=== PATIENT | female | born 1980 | race Two or more races ===

== ENCOUNTER 2024-09-03 10:32 | Emergency (ER) | payer MEDICAID, SELFPAY ==
[2024-09-03 11:04] VITALS: BP 191/146; PULSE 76; RESP 19; TEMP 36.9; O2SAT 99; BMI 40.3
--- NOTE | 2024-09-03 11:21 | XR_ITS ---
Examination: Shoulder,right, 3 views Technique: Shoulder AP internal rotation, AP external rotation, Y view shoulder, 3 views Exam date and time :September 03, 2024 1124 hours INDICATIONS: Right shoulder pain beginning 3 days ago. FINDINGS: No fracture or dislocation Calcific tendinitis Moderate osteoarthritis acromioclavicular joint IMPRESSION: Right shoulder calcific tendinitis Moderate osteoarthritis acromioclavicular joint
[2024-09-03 12:16] VITALS: BP 177/124; PULSE 76
[2024-09-03] MEDS: cloNIDine HCL 0.1 MG TABLET 0.2 MG PO (12:16)
[2024-09-03] MEDS: KETOROLAC INJ 30 MG/ML VIAL IM (12:17)
[2024-09-03] MEDS: DIAZEPAM 5 MG TABLET 10 MG PO (12:17)
[2024-09-03 13:32] VITALS: BP 140/92; PULSE 75; RESP 16; TEMP 36.6; O2SAT 99
--- NOTE | 2024-09-03 14:15 | EDNOTE_ITS ---
Upper Extremity Injury RME/HPI General Chief Complaint: Extremity Injury, Upper Stated Complaint: RIGHT ARM PAIN Time Seen by Provider: 09/03/24 10:37 Arrival date/time: 09/03/24 10:32 44-year-old female history of hypertension presents to the emergency department today with complaints of right arm pain patient reports pain to the right shoulder worse with movement patient reports that she developed pain after throwing an object Limitations: no limitations Related Data Previous Rx's ?Medication ?Instructions ?Recorded cyclobenzaprine 10 mg tablet 10 mg PO TID PRN muscle s pasm 10 09/03/24 days #30 tab-caps ibuprofen 800 mg tablet 800 mg PO TID PRN pain #30 t abs 09/03/24 Allergies Allergy/AdvReac Type Severity Reaction Status Date / Time No Known Allergies Allergy Verified 08/14/22 15:04 Review of Systems Review of Systems Systems Reviewed: All systems reviewed, normal except as documented Constitutional Constitutional: Reports system reviewed and no additional complaints, except as documented, Denies fever(s) and Denies headache(s) Eyes Eyes: Reports system reviewed and no additional complaints, except as documented and Denies blurry vision ENT Ears, Nose, Mouth, and Throat: Reports system reviewed and no additional complaints, except as documented, Denies headache(s), Denies nasal congestion and Denies nasal discharge Cardiovascular Cardiovascular: Reports system reviewed and no additional complaints, except as documented, Denies chest pain and Denies dyspnea Respiratory Respiratory: Reports system reviewed and no additional complaints, except as documented, Denies chest congestion, Denies cough and Denies dyspnea Gastrointestinal Gastrointestinal: Reports system reviewed and no additional complaints, except as documented and Denies abdominal pain Musculoskeletal Musculoskeletal: Reports system reviewed and no additional complaints, except as documented, Reports arthralgias (Right shoulder pain), Denies deformity and Den ies joint swelling Integumentary/Breasts Skin/Breast: Reports system reviewed and no additional complaints, except as documented and Denies rash Neurologic Neurologic: Reports system reviewed and no additional complaints, except as documented, Reports as per HPI and Denies headache(s) Past Medical History Past Medical History NEUROLOGIC: Negative Neurological Disorders or Seizures CARDIAC: Positive Cardiac Disorders, Hypertension and Hypotension; Negative Congestive Heart Failure RESPIRATORY: Negative Chronic Obstructive Pulmonary Disease (COPD), Tuberculosis or Sleep Apnea GASTROINTESTINAL: Negative Gastrointestinal Disorders, Hepatitis or Colorectal Cancer GENITOURINARY: Negative Genitourinary Disorders, Renal Disease or Prostate Cancer REPRODUCTIVE: Positive Previous Pregnancies; Negative Breast Cancer or Testicular Cancer MUSCULOSKELETAL: Positive Musculoskeletal Disorders; Negative Bone Cancer ENDOCRINE: Negative Endocrine Disorders, Diabetes Mellitus Type 1 or Diabetes Mellitus Type 2 HEMATOLOGIC: Negative Blood Disorders OTHER HISTORY: Positive Chicken Pox; Negative Hospitalization, Autoimmune Disease, Down Syndrome, Developmental Delay, Shingles, Falls, Blood Transfusions, Blood Transfusion Reaction, Anesthesia Reactions, Organ Transplant, Chemotherapy, Radiation Therapy, Hyperbaric Therapy, MRSA, VRSA, Vancomycin-Resistant Enterococci, Human Immunodeficiency Virus (HIV), Measles, Mumps, Rubella ([place] Measles), Pe rtussis, Clostridium Difficile, Cancer, Breast Cancer, Cervical Cancer, Colorectal Cancer, Lung Cancer, Ovarian Cancer, Prostate Cancer or Testicular Cancer Family History FAMILY HISTORY: Positive Family Cardiac Disorders and Family Surgery; Negative Family Psychiatric Problems, Family Respiratory Disorders, Family Gastrointestinal Problems, Family Cancer or Family Anesthesia Reaction Surgical History SURGICAL: Negative Section or Organ Transplant Social History SMOKING STATUS: Never smoker ED Exam General Limitations: Present no limitations General appearance: Present alert and in no apparent distress Head Head exam: Present atraumatic, normocephalic and normal inspection Eye Eye exam: Present normal appearance, PERRL and EOMI ENT ENT exam: Present normal exam, normal oropharynx and mucous membranes moist Neck Neck exam: Present normal inspection, full ROM and trachea midline Chest Chest inspection: Present normal inspection and symmetric chest wall rise Respiratory Respiratory exam: Present normal lung sounds bilaterally Cardiovascular Cardiovascular exam: Present regular rate, normal rhythm and normal heart sounds Abdominal Exam Abdominal exam: Present soft and normal bowel sounds Extremities Exam Extremities exam: Present full ROM, tenderness (Right shoulder pain) and normal capillary refill; Absent joint swelling Back Exam Back exam: Present normal inspection and full ROM Neurological Exam Neurological exam: Present alert, oriented X3 and CN II-XII intact Psychiatric Psychiatric exam: Present normal affect and normal mood Skin Skin exam: Present warm, dry, intact and normal color Course Quality Measures none Orders Category Date Time Status sling [Splint / Immobilizer] STAT Care 09/03/24 14:19 Completed XR shoulder RT min 2V Stat Exams 09/03/24 11:21 Completed Diazepam [Valium] Med 09/03/24 11:07 Discontinued 10 mg PO X1 ONE Ketorolac Inj [Toradol Inj] Med 09/03/24 11:07 Discontinued 30 mg IM X1 ONE cloNIDine HCL [Catapres] Med 09/03/24 11:07 Discontinued 0.2 mg PO X1 ONE Vital Signs Vital signs: Vital Signs Temperature 98.4 F 09/03/24 11:04 Pulse Rate 76 09/03/24 11:04 Respiratory Rate 19 09/03/24 11:04 Blood Pressure 191/146 H 09/03/24 11:04 Pulse Oximetry (%) 99 09/03/24 11:04 Oxygen Delivery Method Room Air 09/03/24 11:04 O2 saturation 99% room air with normal limits Extremity Injury MDM Narrative MDM Narrative:: 44-year-old female history of hypertension presents to the emergency department today with complaints of right arm pain patient reports pain to the right shoulder worse with movement patient reports that she developed pain after throwing an object On exam patient is tenderness of the right shoulder worse with movement Incidentally patient blood pressure is elevated patient reports been noncompliant with hypertension medication Patient can medication for hypertension patient assures me she has no chest pain or shortness of breath at this time Imaging of right shoulder obtained patient does have calcific tendinitis Patient placed in sling at time of reevaluation patient blood pressure is normalized explained to the patient she must follow-up with her primary care doctor to discuss blood pressure management Patient discharged home in no distress to follow-up with primary care doctor in the next 24 to 48 hours and for any worsening symptoms to return to the ER immediately Patient data External records reviewed:: [facility] previous records Clinical information provided by:: patient Social determinants that could affect healthcare access:: none Patient has the following chronic illnesses:: See history How is presenting disease/condition affected by chronic disease/condition?: caused by Evaluation data The following diagnostics were reviewed and interpreted by me:: radiology exam(s) Lab and/or radiology exams considered but not ordered:: Radiology obtain Interpretation Summary: Reviewed by me Medications / Prescriptions Medications or Prescriptions considered but not ordered:: Given Medication administrations:: Medication Administration History Discontinued Medications Clonidine (Clonidine Hcl 0.1 Mg Tablet) 0.2 mg PO X1 ONE Stop: 09/03/24 11:08 Last Admin: 09/03/24 12:16 Dose: 0.2 mg Documented By: CARLOS Diazepam (Diazepam 5 Mg Tablet) 10 mg PO X1 ONE Stop: 09/03/24 11:08 Last Admin: 09/03/24 12:17 Dose: 10 mg Documented By: VG Ketorolac Tromethamine (Ketorolac Inj 30 Mg/Ml Vial) 30 mg IM X1 ONE Stop: 09/03/24 11:08 Last Admin: 09/03/24 12:17 Dose: 30 mg Documented By: VG Given Consultations Consultation(s) initiated? (list below): No Diagnosis Upper Extremity Injury Differential Diagnosis: other (Shoulder sprain, shoulder fracture) Most likely diagnosis given after review of the tests above:: Shoulder pain right, established hypertension, calcific tendinitis Admission Indicated Admission indicated?: not indicated Admission Request Was there a request for admission?: No Disposition Plan Disposition Plan: Discharge Discharge Attestation Discharge Attestation: The patient and all family members were given an opportunity to ask questions and understood the discharge instructions. Discharge instructions specifically effects, indications for sooner follow up or return to the emergency department, and the expected course of current diagnosis. Patient condition: Stable Discharge Plan Plan Patient Disposition: HOME (Self Care) Disposition Comment: Stable Prescriptions/Referrals Prescriptions/Med Rec: New cyclobenzaprine 10 mg tablet 10 mg PO TID PRN (Reason: muscle spasm) 10 Days Qty: 30 0RF ibuprofen 800 mg tablet 800 mg PO TID PRN (Reason: pain) Qty: 30 0RF Referrals: Debi Morgan PA-C [Primary Care Provider] - 09/04/24 Problem List Clinical Impression: Calcific tendinitis of right shoulder Patient/Caregiver Discharge Instructions Education Materials: ED Tendonitis Additional Instructions: Please follow up with your primary care doctor in the next 24-48hrs for any worsening symptoms return here immediately Print Language: Slovenian Stand Alone Forms: Amelia Award Info., Work/School Release, Patient Portal Info Letter LUCILLE/PETE Supervising Physician LUCILLE/PETE Supervising Physician: Dr. meng
== END 2024-09-03 14:24 | disposition home or self-care (01) ==
PROVIDERS: Emergency Provider Emergency Medicine; PCP Physician Assistant
DX: M75.31 Calcific tendinitis of right shoulder (principal)
CPT/HCPCS: 73030; 96372; 99283; A4565; J1885; A9270

== ENCOUNTER → 2025-03-19 | Outpatient (CLI) | payer MEDICAID, SELFPAY ==
--- NOTE | 2025-03-19 15:00 | XR_ITS ---
Examination: Screening digital mammography, bilateral Computer aided detection 3-D breast Tomosynthesis, bilateral Date and time of exam: March 19, 2025 1526 hours No priors Indication: Screening Technique: Nonmagnified MLO, CC views of the breasts to been obtained, reconstructed from 3-D Tomosynthesis images. R2 computer aided detection program utilized for evaluation of suspicious masses and/or abnormal calcifications. 3-D Tomosynthesis images obtained. Findings: Scattered areas of fibroglandular density. Benign calcifications. No suspicious masses Impression: BI-RADS category II: Benign Findings. Recommend 1 year follow-up mammogram.
== END | disposition home or self-care (01) ==
LOC: CDIM 15:00
PROVIDERS: Referring Provider Obstetrics & Gynecology; Visit Provider Obstetrics & Gynecology
DX: Z12.31 Encounter for screening mammogram for malignant neoplasm of breast (principal); R92.323 Mammographic fibroglandular density, bilateral breasts; R92.1 Mammographic calcification found on diagnostic imaging of breast
CPT/HCPCS: 77063; 77067